=== PATIENT | male | born 1995 | race Caucasian/White ===

== ENCOUNTER 2017-05-04 08:40 | Emergency (ER) | payer OTHER ==
[~2017-05-04] VITALS: Ht 188 cm; Wt 129.0 kg
[~2017-05-04 08:40] MED LIST: CLARITIN
[2017-05-04 08:43] VITALS: Ht 188 cm; Wt 129.0 kg
--- NOTE | 2017-05-04 09:13 | ERD ---
ER Documentation Chief Complaint Chief Complaint Complains of a rash possible shingles HPI 21-year-old male, previously healthy, fully immunized, presents to the emergency department complaining of sudden onset of generalized rash preceded by fever of 101, headache and general malaise. The rashes started approximately 24 hours prior to arrival. The patient is states that his mother currently has shingles. Denies cough, shortness of breath, chest pain. No treatment attempted at this time. No history of chickenpox during infancy, positive history of chickenpox vaccine. ROS A 12-point review of systems was performed and negative other than presented in the history of present illness. SYSTEMIC symptoms: no fever, chills, no night sweats, no weight loss EYE symptoms: No blurred vision, no eye discharge OTOLARYNGEAL symptoms: No hearing loss. No ear pain, no sore throat CARDIOVASCULAR symptoms: No chest pain or discomfort, no palpitations. PULMONARY symptoms: No dyspnea, no cough, no wheezing. GASTROINTESTINAL symptoms: No abdominal pain, no nausea, no vomiting, no diarrhea MUSCULOSKELETAL symptoms: No arthralgias, no muscle aches. NEUROLOGY symptoms: No confusion, no syncope, no numbness or tingling. SKIN: Per HPI Medications Home Meds Active Scripts Acetaminophen* (Tylenol*) 325 Mg Tablet, 1 TAB PO Q6 Y for PAIN AND OR ELEVATED TEMP, #20 TAB Prov:MARIA ISABEL SCHULTZ MD 05/04/17 Valacyclovir HCl (Valtrex) 1,000 Mg Tablet, 1000 MG PO TID for 7 Days, TAB Prov:MARIA ISABEL SCHULTZ MD 05/04/17 Reported Medications [Claritin] No Conflict Check 06/08/10 Allergies Allergies: Coded Allergies: Amoxicillin (Verified Allergy, Mild, RASH, 06/08/10) PMhx/Soc History of Surgery: No Anesthesia Reaction: No Hx Neurological Disorder: No Hx Respiratory Disorders: No Hx Cardiac Disorders: No Hx Psychiatric Problems: No Hx Miscellaneous Medical Probl: No Hx Alcohol Use: No Hx Substance Use: No Hx Tobacco Use: No Physical Exam Vitals Vital Signs Date Time Temp Pulse Resp B/P Pulse Ox O2 Delivery O2 Flow Rate FiO2 05/04/17 08:43 99.6 110 20 164/88 98 Physical Exam Patient is in no acute distress, vital signs stable. Alert and fully oriented. EYES: PERRLA, EOMI, Sclera and conjunctiva appear normal. EARS: Canals clear, tympanic membranes WNL THROAT: Normal oropharynx. NECK: Supple, No lymphadenopathy. Full ROM without pain or tenderness. HEART: RRR, no rubs, murmurs, clicks or gallops. LUNGS: Clear to auscultation. ABDOMEN: Soft, non-tender without masses or hepatosplenomegaly. EXTREMITIES: No edema bilaterally. BACK: Full ROM, no deformity, normal back exam NEURO: Cranial nerves grossly intact, no motor or sensory deficit SKIN: Generalized vesicular pustular rash. Procedures/MDM 21-year-old male, previously immunized against chickenpox, presents with pruritic generalized vesicular and pustular rash after being in contact with her mother with shingles. Vital signs stable, Physical exam revealed generalized vesicular pustular rash. Differential diagnosis include but not limited to: Viral exanthema, HSV infection, chickenpox. Low suspicion for varicella pneumonia or a systemic compromise. Physical examination and clinical presentation consistent most likely with chickenpox. During the ED course the patient remained stable, no new complaints. Results and clinical impression discussed with patient who agrees with management. The patient is stable to be treated outpatient and will be discharged home with a Rx for valacyclovir, some side effects of prescribed medications (headache, rash, nausea, vomiting, diarrhea, drowsiness, habituation , bleeding, hypertension, interactions with other medications) were reviewed. The patient was instructed to follow up with the primary care provider in the next 48h. If symptoms persist, worsen or new symptoms develop, then patient should return to the ED immediately. Instructions explained and given directly by me to the patient in German with acknowledgment and demonstrated understanding. Disclaimer: Inadvertent spelling and grammatical errors are likely due to EHR/ dictation software use and do not reflect on the overall quality of patient care. Also, please note that the electronic time recorded on this note does not necessarily reflect the actual time of the patient encounter. Departure Diagnosis: Primary Impression: Chickenpox Additional Impression: Exposure to varicella zoster virus (VZV) Condition: Stable Additional Instructions: Call your primary care doctor TOMORROW for an appointment during the next 1-2 days. See the doctor sooner or return here if your condition worsens before your appointment time. Thank you very much for allowing us to participate in your care. Your health and safety is our top priority at [facility]. Have prescriptions filled and follow precisely the directions on the label. Follow-up with primary care provider during the next 4 days and bring all the information and medications prescribed. If illness has not improved in 2 days, then make an appointment with primary care provider. If the provider is unavailable, return to the Emergency Department immediately. MARIA ISABEL SCHULTZ MD May 04, 2017 09:13
[2017-05-04] MEDS ORDERED: VALA10004 PO (09:20)
[2017-05-04] MEDS ORDERED: ACET325T33 PO (09:20)
== END 2017-05-04 09:53 | disposition home or self-care (01) ==
LOC: FTE 08:40
DX: B01.9 Varicella without complication (principal)
CPT/HCPCS: 99283